=== PATIENT | male | born 1955 ===

== ENCOUNTER 2018-03-05 12:38 | Emergency (ER) | payer MEDICARE ==
[2018-03-05 12:52] VITALS: BP 138/77
--- NOTE | 2018-03-05 13:13 | UC ---
Ear Complaint HPI - HPI Summary HPI Summary: Patient is complaining of wax buildup in both ears since this past Sunday. He notes the right is worse than left. He has a history of the same. He tried using [id number] flush without success. He denies any pain to his ears, decreased hearing or discharge. He has no other complaints. - History of Current Complaint Chief Complaint: UCEar Stated Complaint: BI LAT EAR COMP Time Seen by Provider: 03/05/18 12:49 Hx Obtained From: Patient Pain Intensity: 0 Associated Signs/Symptoms: Negative: Discharge, Hearing Loss, Foreign Body Sensation, Trauma to Ear, Swelling @, URI Symptoms - Allergies/Home Medications Allergies/Adverse Reactions: Allergies Allergy/AdvReac Type Severity Reaction Status Date / Time No Known Allergies Allergy Verified 03/05/18 12:48 Home Medications: Home Medications Cholecalciferol TAB* [Vitamin D TAB*] 3,000 units PO DAILY 03/05/18 [History Confirmed 03/05/18] Epzicom 1 tab PO DAILY 03/05/18 [History Confirmed 03/05/18] Flecainide TAB* [Tambocor TAB*] 100 mg PO BID 03/05/18 [History Confirmed ] Levothyroxine TAB* [Synthroid TAB*] 112 mcg PO 0800 03/05/18 [History Confirmed 03/05/18] Lisinopril TAB* [Prinivil TAB*] 20 mg PO DAILY 03/05/18 [History Confirmed 03/05] Magnesium Oxide [Magnesium] 500 mg PO DAILY 03/05/18 [History Confirmed 03/05/18 ] [place]-3 Fatty Acids/Fish Oil [[place] 3] 4 gm PO DAILY 03/05/18 [History Confirmed 03/05/18] Omeprazole CAP* [Prilosec CAP* 20 MG] 20 mg PO EVERY OTHER DAY 03/05/18 [ History Confirmed 03/05/18] Primidone TAB(*) [Mysoline TAB(*)] 100 mg PO BID 03/05/18 [History Confirmed ] Raltegravir* [Isentress*] 400 mg PO BID 03/05/18 [History Confirmed 03/05/18] Rivaroxaban TAB(*) [Xarelto 15 mg(*)] 15 mg PO DAILY 03/05/18 [History Confirmed 03/05/18] dilTIAZem HCl [Diltiazem ER] 180 mg PO DAILY 03/05/18 [History Confirmed ] PMH/Surg Hx/FS Hx/Imm Hx - Additional Past Medical History Additional PMH: HIV [id number], Tremor, transient a-fib, gout Endocrine History: Thyroid Disease Cardiovascular History: Hypertension - Surgical History Surgical History: Yes Surgery Procedure, Year, and Place: carpal tunnel - Social History Occupation: Retired Alcohol Use: Occasionally Substance Use Type: None Smoking Status (MU): Never Smoked Tobacco - Immunization History Vaccination Up to Date: Yes Review of Systems Constitutional: Negative Skin: Negative Eyes: Negative ENT: Negative Respiratory: Negative Cardiovascular: Negative Gastrointestinal: Negative Genitourinary: Negative Motor: Negative Neurovascular: Negative Musculoskeletal: Negative Neurological: Negative Psychological: Negative Is Patient Immunocompromised?: Yes All Other Systems Reviewed And Are Negative: Yes Physical Exam Triage Information Reviewed: Yes Appearance: Well-Appearing Vital Signs: Initial Vital Signs Temp 97.5 F 03/05/18 12:49 Pulse 75 03/05/18 12:49 Resp 16 03/05/18 12:49 BP 138/77 03/05/18 12:49 Pulse Ox 100 03/05/18 12:49 Vital Signs Reviewed: Yes Eyes: Positive: Conjunctiva Clear ENT: Positive: Pharyngeal erythema, Other - Cerumen both canals R>L.. Negative : Nasal congestion, Nasal drainage Neck: Positive: Supple, Nontender, No Lymphadenopathy Respiratory: Positive: Lungs clear, Normal breath sounds Cardiovascular: Positive: RRR, No Murmur Abdomen Description: Positive: Nontender, No Organomegaly, Soft Bowel Sounds: Positive: Present Musculoskeletal: Positive: ROM Intact Neurological: Positive: Alert Psychological: Positive: Age Appropriate Behavior Skin Exam: Normal Ear Complaint Course/Dx - Course Course Of Treatment: TM'S MONTANEZ, CANALAS CLEAR POST FLUSH - Differential Dx/Diagnosis Provider Diagnoses: Cerumen impaction Discharge - Sign-Out/Discharge Documenting (check all that apply): Patient Departure - Discharge Plan Condition: Stable Disposition: HOME Patient Education Materials: Cerumen Impaction (ED) Additional Instructions: FOLLOW UP UPSTATE I.D. SCHEDULED - Billing Disposition and Condition Condition: STABLE Disposition: Home
== END 2018-03-05 13:31 | disposition home or self-care (01) ==
LOC: UCCORT 12:38
DX: H61.23 Impacted cerumen, bilateral (principal); I10 Essential (primary) hypertension; E07.9 Disorder of thyroid, unspecified; Z21 Asymptomatic human immunodeficiency virus [HIV] infection status; I48.91 Unspecified atrial fibrillation; Z79.01 Long term (current) use of anticoagulants
CPT/HCPCS: 99203; G0463

== ENCOUNTER 2018-04-26 10:06 | Emergency (ER) | payer MEDICARE ==
[2018-04-26 11:35] VITALS: BP 127/65
--- NOTE | 2018-04-26 11:35 | UC ---
General HPI - HPI Summary HPI Summary: Patient is complaining of a sore throat since yesterday that is got little worse today. He also notes a several day history of increasing cough and chest congestion. He has no associated fever, chills or wheezing. He doesn't know with exertion he does work a little harder to breathe with this chest congestion. He has no associated chest pain. - History of Current Complaint Stated Complaint: ST/COUGH Time Seen by Provider: 04/26/18 11:28 Hx Obtained From: Patient Onset/Duration: Gradual Onset Timing: Constant Associated Signs & Symptoms: Positive: Cough. Negative: Chest Pain, Fever - Allergy/Home Medications Allergies/Adverse Reactions: Allergies Allergy/AdvReac Type Severity Reaction Status Date / Time efavirenz [From Sustiva] Allergy Hives Verified 04/26/18 11:27 nelfinavir [From Viracept] Allergy Hives Verified 04/26/18 11:27 Home Medications: Home Medications Aspirin 81 mg CHEW TAB* [Aspirin Low Dose TAB*] 81 mg PO DAILY 04/26/18 [ History Confirmed 04/26/18] PMH/Surg Hx/FS Hx/Imm Hx - Additional Past Medical History Additional PMH: HIV, CD4 over 600, gout Endocrine History: Thyroid Disease Cardiovascular History: Hypertension, Atrial Fibrillation - ablation years ago, cardioversion GI/ History: Gastroesophageal Reflux - Surgical History Surgical History: Yes Surgery Procedure, Year, and Place: carpal tunnel - Family History Known Family History: Positive: Other - mom afib - Social History Occupation: Retired Lives: Alone Alcohol Use: Occasionally Substance Use Type: None Smoking Status (MU): Never Smoked Tobacco - Immunization History Vaccination Up to Date: Yes Review of Systems Constitutional: Negative Skin: Negative Eyes: Negative ENT: Sore Throat Respiratory: Cough Cardiovascular: Negative Gastrointestinal: Negative Genitourinary: Negative Motor: Negative Neurovascular: Negative Musculoskeletal: Negative Neurological: Negative Psychological: Negative Is Patient Immunocompromised?: Yes - HIV All Other Systems Reviewed And Are Negative: Yes Physical Exam Triage Information Reviewed: Yes Appearance: Well-Appearing Vital Signs Reviewed: Yes Eyes: Positive: Conjunctiva Clear ENT: Positive: Pharyngeal erythema, TMs normal, Uvula midline. Negative: Nasal congestion, Nasal drainage, Tonsillar swelling, Tonsillar exudate, Trismus, Muffled voice, Hoarse voice Neck: Positive: Supple, Nontender, No Lymphadenopathy Respiratory: Positive: Lungs clear, Normal breath sounds Cardiovascular: Positive: RRR, No Murmur Abdomen Description: Positive: Nontender, No Organomegaly, Soft Bowel Sounds: Positive: Present Musculoskeletal: Positive: ROM Intact, No Edema Neurological: Positive: Alert Psychological: Positive: Age Appropriate Behavior Skin Exam: Normal Diagnostics - Laboratory Diagnostic Studies Completed/Ordered: rapid strep=neg. tc=pending. - Radiology No standard instances Radiology Interpretation Completed By: Radiologist - CXR=NO ACTIVE CARDIOPULMONARY DISEASE. Course/Dx - Course Course Of Treatment: Non toxic. CD4>600. CXR=unremarkable. No concern for PCP; hoever, given pt hx of HIV-I will cover for presumptive bacterial infection given his several day hx of chest congestion/cough. will tx with augmentin to cover his lungs and throat. Need for close f/u PCP stressed at time of visit as well. - Differential Dx - Multi-Symptom Provider Diagnoses: Pharyngitis. Bronchitis. Discharge - Sign-Out/Discharge Documenting (check all that apply): Patient Departure All imaging exams completed and their final reports reviewed: No Studies - Discharge Plan Condition: Stable Disposition: HOME Prescriptions: Amoxicillin/Clavulanate TAB* [Augmentin TAB 875*] 875 mg PO BID 10 Days #20 tab Patient Education Materials: Pharyngitis (ED), Acute Bronchitis (ED) Additional Instructions: FOLLOW UP WITH DR HERNANDEZ-YOUR PRIMARY CARE/INFECTIOUS DISEASE DOCTOR IN 5-7 DAYS FOR A RECHECK OR SOONER IF WORSE. - Billing Disposition and Condition Condition: STABLE Disposition: Home
--- NOTE | 2018-04-26 12:07 | RAD ---
HISTORY: congested cough x several days COMPARISONS: None VIEWS: 4: Frontal dual-energy and lateral views of the chest. FINDINGS: CARDIOMEDIASTINAL SILHOUETTE: The cardiomediastinal silhouette is normal. NICK: The nick are normal. PLEURA: The costophrenic angles are sharp. No pleural abnormalities are noted. LUNG PARENCHYMA: The lungs are clear. ABDOMEN: The upper abdomen is clear. There is no subphrenic gas. BONES AND SOFT TISSUES: No bone or soft tissue abnormalities are noted. OTHER: None. IMPRESSION: NO ACTIVE CARDIOPULMONARY DISEASE.
== END 2018-04-26 12:28 | disposition home or self-care (01) ==
LOC: UCCORT 10:06
DX: J02.9 Acute pharyngitis, unspecified (principal); J40 Bronchitis, not specified as acute or chronic; E07.9 Disorder of thyroid, unspecified; I10 Essential (primary) hypertension; I48.91 Unspecified atrial fibrillation; K21.9 Gastro-esophageal reflux disease without esophagitis
CPT/HCPCS: 71046; 87070; 87651; 99212; G0463

== ENCOUNTER 2019-05-02 15:48 | Emergency (ER) | payer MEDICARE, OTHER ==
--- NOTE | 2019-05-02 16:08 | UC ---
Throat Pain/Nasal [place] HPI - HPI Summary HPI Summary: 64-year-old male who has had head congestion and sinus pressure over the past 4- 5 days especially on the left maxillary sinus area. - History of Current Complaint Stated Complaint: ST Time Seen by Provider: 05/02/19 16:06 Hx Obtained From: Patient Onset/Duration: Gradual Onset Severity: Mild Cough: None Associated Signs & Symptoms: Positive: Sinus Discomfort, Nasal Discharge - Allergies/Home Medications Allergies/Adverse Reactions: Allergies Allergy/AdvReac Type Severity Reaction Status Date / Time efavirenz [From Sustiva] Allergy Hives Verified 05/02/19 16:00 nelfinavir [From Viracept] Allergy Hives Verified 05/02/19 16:00 Home Medications: Home Medications Apixaban* [Eliquis*] 5 mg PO BID 05/02/19 [History Confirmed 05/02/19] Ibuprofen TAB* [Advil TAB*] 200 mg PO Q6H PRN 05/02/19 [History Confirmed ] Losartan Potassium 100 mg PO DAILY 05/02/19 [History Confirmed 05/02/19] PMH/Surg Hx/FS Hx/Imm Hx Previously Healthy: Yes Cardiovascular History: Cardiac Disease, Hypertension, Atrial Fibrillation Other History Of: HIV - Surgical History Surgical History: Yes Surgery Procedure, Year, and Place: carpal tunnel - Family History Known Family History: Positive: Other - mom afib - Social History Alcohol Use: Occasionally Substance Use Type: None Smoking Status (MU): Never Smoked Tobacco - Immunization History Vaccination Up to Date: Yes Review of Systems All Other Systems Reviewed And Are Negative: Yes ENT: Positive: Sore Throat, Nasal Discharge, Sinus Congestion, Sinus Pain/ Tenderness Is Patient Immunocompromised?: No Physical Exam Triage Information Reviewed: Yes Appearance: Well-Appearing, No Pain Distress, Well-Nourished Vital Signs Reviewed: Yes ENT: Positive: Pharynx normal, Nasal congestion, Nasal drainage - Clear nasal coryza, Sinus tenderness - Bilateral maxillary sinus tenderness., Uvula midline Neck: Positive: Supple, Nontender, No Lymphadenopathy Respiratory: Positive: Lungs clear, Normal breath sounds, No respiratory distress, No accessory muscle use Cardiovascular: Positive: RRR, No Murmur, Pulses Normal, Brisk Capillary Refill Musculoskeletal Exam: Normal Neurological Exam: Normal Psychological Exam: Normal Skin Exam: Normal Throat Pain/Nasal Course/Dx - Course Course Of Treatment: Patient is comfortable here. I did talk with him about this being probably a viral upper respiratory illness however he is very insistent about needing an antibiotic. I'm treating him with Augmentin however I did again reiterate to him I believe this is viral and he does not need an antibiotic. - Differential Dx/Diagnosis Provider Diagnosis: Sinusitis Discharge ED - Sign-Out/Discharge Documenting (check all that apply): Patient Departure All imaging exams completed and their final reports reviewed: No Studies - Discharge Plan Condition: Good Disposition: HOME Prescriptions: Amoxicillin/Clavulanate TAB* [Augmentin TAB 875*] 875 mg PO BID 10 Days #20 tab Patient Education Materials: Sinusitis (ED) Referrals: No Primary Care Phys,NOPCP [Primary Care Provider] - Additional Instructions: May continue Tylenol every 4 hours and ibuprofen every 8 hours for pain. Follow -up with your primary care provider if no improvement in 3 or 4 days. - Billing Disposition and Condition Condition: GOOD Disposition: Home
[2019-05-02 16:12] VITALS: BP 150/68
== END 2019-05-02 16:29 | disposition home or self-care (01) ==
LOC: UCCORT 15:48
DX: J32.9 Chronic sinusitis, unspecified (principal); I10 Essential (primary) hypertension; I48.91 Unspecified atrial fibrillation; Z79.01 Long term (current) use of anticoagulants; Z21 Asymptomatic human immunodeficiency virus [HIV] infection status; Z88.8 Allergy status to other drugs, medicaments and biological substances
CPT/HCPCS: 99212; G0463